=== PATIENT | male | born 2000 | race Two or more races ===

== ENCOUNTER 2019-08-30 19:14 | Emergency (ER) | payer OTHER, SELFPAY ==
[2019-08-30 19:18] VITALS: BP 113/63; PULSE 71; RESP 165; TEMP 36.8; O2SAT 100
[2019-08-30 19:26] VITALS: BP 113/63; PULSE 71; RESP 16; TEMP 36.8; O2SAT 100
--- NOTE | 2019-08-30 20:05 | ED.ALLEREA ---
HPI - Allergic Reaction General Chief complaint: Allergic Reaction Stated complaint: bee sting/allergic Time Seen by Provider: 08/30/19 20:03 History of Present Illness HPI narrative: 18 yo male w/ h/o allergy to insect stings presents c/o wasp sting. This happened about 90 minutes priro to my evaluation. He was stung on the lower back. He is having minimal pain and swelling at the site. He denies any other systemic symptoms. 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 Related Data Allergies Allergy/AdvReac Type Severity Reaction Status Date / Time bee venom protein (honey bee) Allergy Severe Anaphylactic Verified 08/30/19 19:29 Shock hornet venom Allergy Severe Anaphylactic Verified 08/30/19 19:29 Shock acetaminophen [From [place]] AdvReac Depression Verified 08/30/19 19:29 hydrocodone [From [place]] AdvReac Depression Verified 08/30/19 19:29 Review of Systems Review of Systems: All systems reviewed & are unremarkable except as noted in HPI and below Constitutional: Constitutional: Denies fever(s) and Denies weakness ENT: Denies sore throat Cardiovascular: Cardiovascular: Denies chest pain Respiratory: Respiratory: Denies dyspnea Gastrointestinal: Gastrointestinal: Denies abdominal pain and Denies nausea Integumentary/Breasts: Skin/Breast: Denies rash Neurologic: Denies dizziness and Denies weakness Allergic/Immunologic: Allergic/Immunologic: Denies lip swelling, Denies throat swelling and Denies tongue swelling PMFSH Past Medical History Medical History (Updated 08/30/19 @ 21:20 by Chris Castañeda MD) Asthma Surgical History Surgical History (Updated 05/24/19 @ 09:21 by Rufus Hernandez) H/O inguinal hernia repair Social History Social History (Updated 05/24/19 @ 09:21 by Rufus Hernandez) Smoking status: Never smoker Gender identity (if verbalized by the patient): Male Exam Const: General: healthy appearing, no acute distress and alert Nutritional Appearance: well nourished Orientation/consciousness: patient oriented x3 Limitations: no limitations HENMT: Head: normal to inspection Neck: Neck: normal visual inspection and no lymphadenopathy Chest: Chest palpation & inspection: normal inspection of the chest Resp: Effort & Inspection: normal respiratory effort Auscultation: clear to auscultation bilaterally Cardio: Rate: regular rate Rhythm: regular rhythm Skin: General skin exam: normal color Other: Small area of hyperemia with central puncture on mid back without other significant abnormality. Neuro: General: patient oriented x3, moves all extremities and CN's II-XI intact bilaterally Speech: normal speech Extrem: General: no edema Psych: Appearance: grossly normal and well kempt Affect: normal affect Attitude: cooperative Thought content: Yes Normal thought content present Course Vital Signs Vital signs: Vital Signs Temperature 36.8 C 08/30/19 19:18 Pulse Rate 71 08/30/19 19:18 Respiratory Rate 165 H 08/30/19 19:18 Blood Pressure 113/63 08/30/19 19:18 Pulse Oximetry 100 08/30/19 19:18 Temperature 36.2 C L 08/30/19 21:28 Pulse Rate 78 08/30/19 21:28 Respiratory Rate 14 08/30/19 21:28 Blood Pressure 123/74 08/30/19 21:28 Pulse Oximetry 100 08/30/19 21:28 MDM - Allergic Reaction MDM Narrative Medical decision making narrative: Minimal swelling with no systemic symptoms at > 2hours after sting. I will prescribe moderate dose prednisone for a few days. I think this is unlikely to progress to severe reaction. Differential Diagnosis Differential diagnosis: Likely allergic reaction Medical Records Attestation: I reviewed the patient's medical records. Lab Data Attestation: I reviewed the patient's lab results. Discharge Plan Discharge Clinical Impression: Wasp sting Qualifiers: Encounter type: initial encounter Injury intent: accidental or unintentional Qualified Code(s): T63.461A - Toxic effect
[2019-08-30] MEDS: predniSONE 20 MG TABLET 40 MG PO (20:26)
[2019-08-30 21:28] VITALS: BP 123/74; PULSE 78; RESP 14; TEMP 36.2; O2SAT 100
== END 2019-08-30 21:31 | disposition home or self-care (01) ==
PROVIDERS: Emergency Provider Emergency Medicine; PCP Pediatrics Adolescent Medicine
DX: T63.461A Toxic effect of venom of wasps, accidental (unintentional), initial encounter (principal); J45.909 Unspecified asthma, uncomplicated
CPT/HCPCS: 99283; J7512

== ENCOUNTER 2020-09-24 00:07 | Emergency (ER) | payer OTHER, SELFPAY ==
[2020-09-24 00:07] VITALS: BP 124/71; PULSE 73; RESP 16; TEMP 35.9; O2SAT 99
--- NOTE | 2020-09-24 01:43 | ED.GENADULT ---
HPI - General Adult General Chief complaint: Skin/Abscess/Foreign Body Stated complaint: INFECTED BUG BITES Time Seen by Provider: 09/24/20 01:36 History of Present Illness HPI narrative: Patient is a 19-year-old gentleman who presents the emergency department with chief complaint of multiple mosquito bites. Patient reports he was outside at one of his friends houses and then suddenly started itching over his body the patient noticed that he had multiple little red spots that look like hives. Patient states that he has history of allergic reactions to bee stings and also peaches. Patient denies shortness of breath denies angioedema. Related Data Allergies Allergy/AdvReac Type Severity Reaction Status Date / Time bee venom protein (honey bee) Allergy Severe Anaphylactic Verified 08/30/19 19:29 Shock hornet venom Allergy Severe Anaphylactic Verified 08/30/19 19:29 Shock peach Allergy Swelling Verified 09/24/20 01:42 of Lip/Tongue/Throat acetaminophen [From [place]] AdvReac Depression Verified 08/30/19 19:29 hydrocodone [From [place]] AdvReac Depression Verified 08/30/19 19:29 Review of Systems Review of Systems: Narrative: A 10 system review of systems was completed on the patient and is negative except for what is stated in the HPI. Nursing and ancillary documentation was reviewed. PMFSH Past Medical History Medical History Asthma Surgical History Surgical History H/O inguinal hernia repair Social History Social History Smoking status: Never smoker Gender identity (if verbalized by the patient): Male Exam Narrative: Exam Narrative: GENERAL: Well-appearing, well-nourished, and in no acute distress. HEAD: Normocephalic, atraumatic. EYES: PERRLA and EOMI. ENT: Nares clear, no rhinorrhea or epistaxis. Mucous membranes moist. NECK: Supple. CHEST: Clear to auscultation. No respiratory distress. HEART: Regular rate and rhythm. No murmur heard. Normal peripheral pulses. ABDOMEN: Soft, nontender, nondistended, normal active bowel sounds. EXTREMITIES: Normal range of motion. No edema. SKIN: Warm, dry, there is urticaria present diffusely. NEURO: No focal deficits. Alert and oriented x3. PSYCH: Normal mood and affect. Course Vital Signs Vital signs: Vital Signs Temperature 35.9 C L 09/24/20 00:07 Pulse Rate 73 09/24/20 00:07 Respiratory Rate 16 09/24/20 00:07 Blood Pressure 124/71 09/24/20 00:07 Pulse Oximetry 99 09/24/20 00:07 Temperature 35.9 C L 09/24/20 00:07 Pulse Rate 73 09/24/20 00:07 Respiratory Rate 16 09/24/20 00:07 Blood Pressure 124/71 09/24/20 00:07 Pulse Oximetry 99 09/24/20 00:07 Medical Decision Making Vital Signs Vital Signs: Vital Signs Temperature 35.9 C L 09/24/20 00:07 Pulse Rate 73 09/24/20 00:07 Respiratory Rate 16 09/24/20 00:07 Blood Pressure 124/71 09/24/20 00:07 Pulse Oximetry 99 09/24/20 00:07 Temperature 35.9 C L 09/24/20 00:07 Pulse Rate 73 09/24/20 00:07 Respiratory Rate 16 09/24/20 00:07 Blood Pressure 124/71 09/24/20 00:07 Pulse Oximetry 99 09/24/20 00:07 Discharge Plan Discharge Clinical Impression: Diffuse urticaria Patient Disposition: Home, Self-Care Condition: Stable Instructions: Antibiotic Form, Urticaria (ED) Prescriptions: New prednisone 20 mg tablet 40 mg PO DAILY 5 Days Qty: 10 RF: 0 No Action prednisone 20 mg tablet 20 mg PO DAILY Qty: 4 RF: 0 prednisone 20 mg tablet 20 mg PO BID Qty: 14 RF: 0 albuterol sulfate [Proventil HFA] 90 mcg/actuation HFA aerosol inhaler 2 puff INHALATION QID PRN (Reason: shortness of breath or wheezing) Qty: 18 RF: 0 Follow-up/Referrals: Krystyna,Joann Arnold MD [Primary Care Provider] - Time of Dispositi
[2020-09-24] MEDS: methylPREDNISolone SOD SUCC 125 MG VIAL IM (02:38)
[2020-09-24 02:42] VITALS: BP 120/90; PULSE 67; RESP 18; O2SAT 100
== END 2020-09-24 02:42 | disposition home or self-care (01) ==
PROVIDERS: Emergency Provider Emergency Medicine; PCP Pediatrics Adolescent Medicine
DX: L50.9 Urticaria, unspecified (principal); J45.909 Unspecified asthma, uncomplicated
CPT/HCPCS: 96372; 99283; J2930

== ENCOUNTER 2021-06-03 13:54 | Emergency (ER) | payer OTHER, SELFPAY ==
[2021-06-03 14:10] VITALS: BP 125/81; PULSE 60; RESP 14; TEMP 37.1; O2SAT 98
--- NOTE | 2021-06-03 14:25 | PC.NURSE ---
pt. in room 15, few items need removed.
[2021-06-03 14:39] LABS: Basophils Absolute Auto 0.1 K/mm3 (0.0-0.1); Basophils Percent Auto 0.6 % (0.2-1.2); Eosinophils Absolute Auto 0.1 K/mm3 (0-0.3); Eosinophils Percent Auto 1.4 % (0-4.4); Hematocrit 43.9 % (42.0-52.0); Hemoglobin 14.4 g/dL (14.0-18.0); Immature Granulocyte Absolute 0.03 K/mm3 (0.00-0.031); Immature Granulocyte Percent A 0.4 % (0-0.5); Lymphocytes Absolute Auto 1.68 K/mm3 (0.9-3.2); Lymphocytes Percent Auto 20.9 % (18.3-44.2); Mean Corpuscular HGB Conc 32.8 g/dl (32-36); Mean Corpuscular Hemoglobin 26.2 pg (26-34); Mean Platelet Volume 10.2 fl (7.4-10.4); Monocytes Absolute Auto 0.6 K/mm3 (0.1-0.6); Monocytes Percent Auto 7.5 % (2.6-8.5); Neutrophils Absolute Auto 5.6 K/mm3 (1.3-6.7); Neutrophils Percent Auto 69.2 % (45.5-73.1); Platelet Count Result 273 k/mm3 (150-375); Red Blood Count 5.49 M/mm3 (4.6-6.20); Red Cell Distribution Width 12.7 % (11.5-14.5)
--- NOTE | 2021-06-03 14:41 | ED.GENADULT ---
HPI - General Adult General Chief complaint: Psychiatric Symptoms <Christine Cervantes MD - Last Filed: 06/04/21 07:06> Stated complaint: SI <Christine Cervantes MD - Last Filed: 06/04/21 07:06> Time Seen by Provider: 06/03/21 14:19 <Christine Cervantes MD - Last Filed: 06/04/21 07:06> Source: patient and RN notes reviewed <Christine Cervantes MD - Last Filed: 06/04/21 07:06> History of Present Illness HPI narrative: Patient is a 20 y/o male complaining of suicidal ideation for a while. He states that he does not have a plan. He states that he had an argument with his girlfriend last night and he feels worse. He does not have a suicidal plan. He has no hallucination. He admits that he has been using marijuana. <Christine Cervantes MD - Last Filed: 06/04/21 07:06> Related Data Allergies/adverse reactions: Allergies Allergy/AdvReac Type Severity Reaction Status Date / Time bee venom protein (honey bee) Allergy Severe Anaphylactic Verified 08/30/19 19:29 Shock hornet venom Allergy Severe Anaphylactic Verified 08/30/19 19:29 Shock peach Allergy Swelling Verified 09/24/20 01:42 of Lip/Tongue/Throat <Christine Cervantes MD - Last Filed: 06/04/21 07:06> Review of Systems Constitutional: Constitutional: Denies chills, Denies fever(s), Denies headache(s) and Denies weakness <Christine Cervantes MD - Last Filed: 06/04/21 07:06> Eyes: Eyes: Denies blurry vision <Christine Cervantes MD - Last Filed: 06/04/21 07:06> ENT: Denies headache(s) and Denies neck pain <Christine Cervantes MD - Last Filed: 06/04/21 07:06> Cardiovascular: Cardiovascular: Denies chest pain and Denies dyspnea <Christine Cervantes MD - Last Filed: 06/04/21 07:06> Respiratory: Respiratory: Denies cough and Denies dyspnea <Christine Cervantes MD - Last Filed: 06/04/21 07:06> Gastrointestinal: Gastrointestinal: Denies abdominal pain, Denies diarrhea, Denies nausea and Denies vomiting <Christine Cervantes MD - Last Filed: 06/04/21 07:06> Genitourinary: Genitourinary: Denies hematuria and Denies dysuria <Christine Cervantes MD - Last Filed: 06/04/21 07:06> Musculoskeletal: Musculoskeletal: Denies back pain and Denies neck pain <Christine Cervantes MD - Last Filed: 06/04/21 07:06> Neurologic: Denies headache(s) and Denies weakness <Christine Cervantes MD - Last Filed: 06/04/21 07:06> Psychiatric: Psychiatric: Reports as per HPI, Reports depression and Reports suicidal ideation <Christine Cervantes MD - Last Filed: 06/04/21 07:06> [facility] Past Medical History Medical History: Medical History Asthma <Christine Cervantes MD - Last Filed: 06/04/21 07:06> Surgical History Surgical History: Surgical History H/O inguinal hernia repair <Christine Cervantes MD - Last Filed: 06/04/21 07:06> Social History Social History: Social History Smoking status: Never smoker Substance use type: marijuana Gender identity (if verbalized by the patient): Male <Christine Cervantes MD - Last Filed: 06/04/21 07:06> Exam Const: General: no acute distress and well developed <Christine Cervantes MD - Last Filed: 06/04/21 07:06> Orientation/consciousness: oriented to person, oriented to place, oriented to time and patient oriented x3 <Christine Cervantes MD - Last Filed: 06/04/21 07:06> HENMT: Head: normocephalic <Christine Cervantes MD - Last Filed: 06/04/21 07:06> Ears: external ears normal <Christine Cervantes MD - Last Filed: 06/04/21 07:06> General nose exam: Normal external nose present <Christine Cervantes MD - Last Filed: 06/04/21 07:06> Eyes: General: appearance normal, both eyes and all related structures <Christine Cervatnes MD - Last Filed: 06/04/21 07:06> Conjunctivae: conjunctivae normal <Christine Cervantes MD - Last Filed: 06/04/21 07:06> Neck: Neck: normal visual inspection and full ROM <Christine Cervantes MD - Last Filed: 06/04/21 07:06
[2021-06-03 14:54] LABS: Add Urine Microscopic? YES; Appearance Urine Clear (Clear); Bilirubin Urine Negative (Negative); Blood Urine Negative (Negative); Color Urine Yellow (Yellow); Glucose Urine UA Negative (Negative); Ketones Urine Negative (Negative); Leukocyte Esterase Ur Negative LEU/UL (Negative); Mucus Urine Rare /lpf; Nitrate Urine Negative (Negative); Protein Urine Negative (Negative); RBC Urine 0-2 /hpf (0-2); Specific Grav Ur 1.019 (1.001-1.035); WBC Urine 0-3 /hpf
[2021-06-03 14:55] LABS: Alanine Aminotransferase 22 U/L (4-50); Albumin Level 4.6 g/dL (3.5-5.1); Alkaline Phosphatase 84 U/L (38-126); Anion Gap 6 mmol/L (8-16); Aspartate Amino Transferase 28 U/L (17-59); Bilirubin,Total 0.6 mg/dL (0.2-1.3); Blood Urea Nitrogen 6 mg/dL (9-20); Calcium 9.3 mg/dL (8.4-10.2); Carbon Dioxide 28 mmol/L (22-30); Chloride 103 mmol/L (98-107); Estimated CRCL calculation 118 ml/min; Estimated Glomerular Filt Rate > 60; Ethanol < 10 mg/dL (<10); Glucose 100 mg/dL (65-110); Potassium 4.4 mmol/L (3.4-5.0); Sodium 137 mmol/L (137-145)
[2021-06-03 15:10] LABS: Amphetamine Screen Urine Negative (Negative); Barbiturate Screen Urine Negative (Negative); Benzodiazepines Screen Urine Negative (Negative); Cannabinoid Screen Urine Positive (Negative); Cocaine Screen Urine Negative (Negative); Methadone Screen Urine Negative (Negative); Opiate Screen Urine Negative (Negative); Phencyclidine Screen Urine Negative (Negative)
[2021-06-03 15:25] LABS: Thyroid Stimulating Hormone 0.749 uIU/mL (0.465-4.680)
[2021-06-03 17:27] LABS: SARS-CoV-2 RNA PCR Positive
[2021-06-03 19:23] VITALS: BP 132/66; PULSE 78; RESP 20; O2SAT 100
== END 2021-06-03 19:32 | disposition home or self-care (01) ==
PROVIDERS: Emergency Medicine; Emergency Provider Emergency Medicine
DX: F41.9 Anxiety disorder, unspecified (principal); F32.A Depression, unspecified; U07.1 COVID-19; J45.909 Unspecified asthma, uncomplicated
CPT/HCPCS: 36415; 80053; 80307; 81001; 84443; 85025; 99284; C9803; U0003; U0005

== ENCOUNTER 2023-08-20 11:36 | Emergency (ER) | payer OTHER, SELFPAY ==
[2023-08-20 11:39] VITALS: BP 154/85; PULSE 72; RESP 20; TEMP 36.3; O2SAT 99
--- NOTE | 2023-08-20 12:46 | PC.NURSE ---
Pt called from [facility] twice with no answer. Visual check of [facility] and entrance of ED performed without finding pt.
== END 2023-08-20 12:46 | disposition left against medical advice (07) ==
DX: R05.9 Cough, unspecified (principal)
CPT/HCPCS: 99199